=== PATIENT | female | born 1975 ===

== ENCOUNTER 2017-01-11 21:50 | Inpatient (IN) | payer MEDICAID, OTHER ==
[2017-01-11 22:29] LABS: RBC URINE 4 /hpf (0-3); URINE BACTERIA OCC (<OCC); URINE BILIRUBIN NEGATIVE (NEGATIVE); URINE BLOOD 1+ (NEGATIVE); URINE COLOR Yellow (YELLOW); URINE GLUCOSE (UA) NORMAL (Normal); URINE KETONE NEGATIVE (NEGATIVE); URINE PROTEIN 3+ mg/dL (NEGATIVE); URINE UROBILINOGEN NORMAL mg/dL (0.2-1.0); WBC URINE 7 /hpf (0-5)
[2017-01-11 22:31] LABS: URINE LEUKOCYTE ESTERASE 1+ Leu/uL (Negative)
--- NOTE | 2017-01-11 22:43 | C.PDOC ---
History Of Present Illness 41 year old female, currently with EDC on February 22, presents to the ED with complaints of SOB for 2 days. Denies headache, chest pain, nausea, vomiting , dizziness, or any other complaints at this time. Chief Complaint (Nursing): Shortness Of Breath History Per: Patient History/Exam Limitations: no limitations Onset/Duration Of Symptoms: Days Current Symptoms Are (Timing): Still Present Severity: Mild Past Medical History Reviewed: Historical Data, Nursing Documentation, Vital Signs Vital Signs: Last Vital Signs Temp 98 F 01/12/17 00:12 Pulse 112 H 01/12/17 00:12 Resp 22 01/12/17 00:12 BP 155/86 H 01/12/17 00:12 Pulse Ox 99 01/12/17 00:54 - Medical History PMH: No Chronic Diseases Family History: States: Unknown Family Hx - Social History Hx Alcohol Use: No Hx Substance Use: No - Immunization History Hx Tetanus Toxoid Vaccination: No Hx Influenza Vaccination: No Hx Pneumococcal Vaccination: No Review Of Systems Except As Marked, All Systems Reviewed And Found Negative. Constitutional: Negative for: Fever, Chills Cardiovascular: Negative for: Chest Pain Respiratory: Positive for: Shortness of Breath Gastrointestinal: Negative for: Nausea, Vomiting, Abdominal Pain Neurological: Negative for: Headache, Dizziness Physical Exam - Physical Exam Appears: Non-toxic, No Acute Distress Skin: Normal Color, Warm, Dry Head: Atraumatic, Normacephalic Eye(s): bilateral: Normal Inspection Oral Mucosa: Moist Chest: Symmetrical, No Deformity Cardiovascular: Rhythm Regular Respiratory: Normal Breath Sounds, No Accessory Muscle Use, No Rales, No Rhonchi , No Wheezing Gastrointestinal/Abdominal: No Tenderness, Other (+Gravid) Extremity: Normal ROM, Pedal Edema (3+ pedal edema), No Deformity Neurological/Psych: Oriented x3, Normal Speech, Normal Cognition ED Course And Treatment - Laboratory Results Result Diagrams: 01/11/17 22:46 01/11/17 22:46 ECG: Interpreted By Me, Viewed By Me ECG Rhythm: Nonspecific Changes ECG Interpretation: No Acute Changes Interpretation Of ECG: Sinus tachycardia, non-spc. ST-T changes, abnormal tracings Rate From EC O2 Sat by Pulse Oximetry: 99 (Room air) Pulse Ox Interpretation: Normal Progress Note: CXR, EKG, Blood work, and Urinalysis ordered and reviewed. Patient treated with Apresoline and Magnesium sulfate. Case discussed with Dr. Perez (CHIEF WHEELAGE CLERK on-call) who agreed to see the patient at bedside. heart rate is 150 bpm. Disposition Discussed With : Martha Perez Doctor Will See Patient In The: Hospital Counseled Patient/Family Regarding: Diagnosis - Disposition Disposition: HOSPITALIZED Disposition Time: 23:34 Condition: STABLE - POA Present On Arrival: None - Clinical Impression Clinical Impression: Eclampsia (toxemia of ) - Scribe Statement The provider has reviewed the documentation as recorded by the Scribe Basia Penn. Provider Attestation: All medical record entries made by the Scribe were at my direction and personally dictated by me. I have reviewed the chart and agree that the record accurately reflects my personal performance of the history, physical exam, medical decision making, and the department course for this patient. I have also personally directed, reviewed, and agree with the discharge instructions and disposition.
[2017-01-11 22:54] LABS: BASO % 0.4 % (0.0-2.0); EOS % 0.2 % (0.0-4.0); HEMATOCRIT 37.1 % (34.0-47.0); LYMPH # 1.8 K/uL (1.0-4.3); LYMPH % 18.5 % (20.0-40.0); MEAN CELL VOLUME 88.2 fL (81.0-99.0); MEAN CORPUSCULAR HEMOGLOBIN 28.7 pg (27.0-31.0); MEAN CORPUSCULAR HGB CONC 32.5 g/dL (33.0-37.0); MEAN PLATELET VOLUME 9.3 fL (7.2-11.7); MONO # 0.5 K/uL (0.0-0.8); MONO % 4.8 % (0.0-10.0); RED CELL DISTRIBUTION WIDTH 14.7 % (11.5-14.5); WHITE BLOOD COUNT 9.8 K/uL (4.8-10.8)
[2017-01-11 22:58] LABS: CHLORIDE 103 mmol/L (98-107); SODIUM 133 mmol/L (132-148)
[2017-01-11 22:59] LABS: POTASSIUM 3.6 mmol/L (3.6-5.2)
[2017-01-11 23:01] LABS: ALB/GLOB RATIO 0.8 (1.0-2.1); ALKALINE PHOSPHATASE 204 U/L (38-126); ALT/SGPT 71 U/L (9-52); AST/SGOT 100 U/L (14-36); BILIRUBIN,TOTAL 0.5 mg/dL (0.2-1.3); BLOOD UREA NITROGEN 15 mg/dL (7-17); CARBON DIOXIDE 20 mmol/L (22-30); GFR AFRICAN-AMERICAN > 60; GLUCOSE,RANDOM 92 mg/dL (65-105); TOTAL PROTEIN 7.1 g/dL (6.3-8.3)
[2017-01-11 23:02] LABS: CALCIUM 8.2 mg/dl (8.6-10.4)
[2017-01-11] MEDS ORDERED: Magnesium Sulfate 2 GM in Sodium Chloride 0.9% 100 ML IV ONE (23:24)
[2017-01-11] MEDS ORDERED: Betamethasone Soluspan 30 mg/5mL Inj Susp IM ONE (23:27)
[2017-01-12] MEDS ORDERED: Magnesium Sulfate 20 gm 500 ML IV ONE ×3 (00:35→15:15)
[2017-01-12] MEDS ORDERED: Magnesium Sulfate 20 gm 500 ML IV SCH ×2 (00:45→05:45)
[2017-01-12] MEDS ORDERED: Lactated Ringer's 1,000 ML IV SCH (01:00)
[2017-01-12 02:02] LABS: RBC URINE 1 /hpf (0-3); URINE BILIRUBIN NEGATIVE (NEGATIVE); URINE BLOOD 1+ (NEGATIVE); URINE COLOR Yellow (YELLOW); URINE GLUCOSE (UA) NORMAL (Normal); URINE KETONE NEGATIVE (NEGATIVE); URINE LEUKOCYTE ESTERASE NEG Leu/uL (Negative); URINE PROTEIN 2+ mg/dL (NEGATIVE); URINE UROBILINOGEN NORMAL mg/dL (0.2-1.0); WBC URINE 1 /hpf (0-5)
--- NOTE | 2017-01-12 02:28 | CP.PCM.CON ---
<Annita Marks - Last Filed: 01/12/17 02:12> History of Present Illness - History of Present Illness History of Present Illness: Consult Note - Medicine CC: "shortness of breath" HPI: Patient is a 41 year old female, currently 34 weeks , with no previous medical history who presented to the emergency room complaining of shortness of breath x 2 days. Patient states her shortness of breath began suddenly on Thursday night and has become increasingly worse, prompting her to come to the hospital. She reports shortness of breath is worse with activity and describes it as "suffocating." Patient admits to chest pain, however, points to her epigastric region and notes it to be worse on palpation and with movement. She states the epigastric pain began 1 week ago. Patient reports this is her first episode of dyspnea. She states her previous pregnancies were vaginal deliveries with no complications and denies a history of abortions or miscarriages. She last saw her OBGYN 2 weeks ago. Patient denies being diagnosed with hypertension currently or in a previous . On 12-point review of system, she admits to prior history of irregular menses, blurry vision x 1 week and seeing bright lights x1 day, nausea, vomiting x1 , diarrhea , increased urinary frequency, and increased general weakness. Patient denies headache and vaginal bleeding. In emergency department, patient was found to be hypertensive, initial blood pressure of 178/102. Patient was given IV Hydralazine 20 mg stat which improved pressure to 132/72. Patient also noted to be sinus tachycardic at rate of 112 on EKG. PMH: irregular menses Medications: vitamins Allergies: NKDA Family History: not pertinent Surgical History: denies Social: never smoker. Denies alcohol and illicit drug use. Review of Systems - Constitutional Constitutional: Weakness. absent: Chills, Excessive Sweating, Fever, Headache - EENT Eyes: Blurred Vision, Change in Vision - Cardiovascular Cardiovascular: Chest Pain, Chest Pain with Activity, Dyspnea, Palpitations. absent: Leg Edema, Syncope - Respiratory Respiratory: Dyspnea on Exertion. absent: Cough - Gastrointestinal Gastrointestinal: Abdominal Pain, Diarrhea, Nausea, Vomiting. absent: Coffee Ground Emesis, Hematemesis - Genitourinary Genitourinary: Urinary Frequency - Reproductive: Female Additional comments: 34 weeks - Menstruation Menstruation: Cycle > 4 Weeks Between - Musculoskeletal Musculoskeletal: Back Pain - Integumentary Integumentary: absent: Changing Lesions, New Lesions - Neurological Neurological: Weakness. absent: Dizziness, Headaches - Psychiatric Psychiatric: absent: Anxiety, Depression Past Patient History - Past Social History Smoking Status: Never Smoked - PSYCHIATRIC Hx Substance Use: No - SURGICAL HISTORY Hx Surgeries: No Meds Allergies/Adverse Reactions: Allergies Allergy/AdvReac Type Severity Reaction Status Date / Time No Known Allergies Allergy Verified 01/11/17 22:05 - Medications Medications: Current Medications Hydralazine HCl (Apresoline) 10 mg IVP STAT [facility] Last Admin: 01/11/17 23:26 Dose: 10 mg Lactated Ringer's (Lactated Ringer's) 1,000 mls @ 75 mls/hr IV .[id number] [facility] Physical Exam - Constitutional Appears: Non-toxic, No Acute Distress - Head Exam Head Exam: ATRAUMATIC, NORMAL INSPECTION, NORMOCEPHALIC - Eye Exam Eye Exam: EOMI, Normal appearance, PERRL Pupil Exam: PERRL - ENT Exam ENT Exam: Mucous Membranes Moist, Normal Exam - Neck Exam Neck exam: Positive for: Full Rom, Normal Inspection - Respiratory Exam Respiratory Exam: Clear to Auscultation Bilateral, NORMAL BREATHING PATTERN. absent: Accessory Muscle Use, Chest Wall Tenderness, Decreased Breath Sounds, Rales, Rhonchi, Wheezes - Cardiovascular Exam Cardiovascular Exam: Tachycardia, +S1, +S2. absent: Diastolic murmur, Systolic Murmur - GI/Abdominal Exam GI & Abdominal Exam: Normal Bowel Sounds, Tenderness. absent: Guarding Additional comments: epigastric tenderness to palpation Gravid - Exam Speculum exam: absent: Vaginal Bleeding Additional comments: vaginal exam: cervix closed, posterior, cephalic - Extremities Exam Extremities exam: Positive for: normal inspection, pedal pulses present. Negative for: pedal edema, tenderness - Back Exam Back exam: NORMAL INSPECTION - Neurological Exam Neurological exam: Alert, CN II-XII Intact, Oriented x3, Reflexes Normal - Psychiatric Exam Psychiatric exam: Normal Affect, Normal Mood - Skin Skin Exam: Intact, Normal Color Results - Vital Signs Recent Vital Signs: Last Vital Signs Temp 98 F 01/12/17 00:12 Pulse 112 H 01/12/17 00:12 Resp 22 01/12/17 00:12 BP 155/86 H 01/12/17 00:12 Pulse Ox 99 01/12/17 01:00 - Labs Result Diagrams: 01/11/17 22:46 01/11/17 22:46 Labs: Laboratory Results - last 24 hr 01/11/17 01/12/17 23:50 01:43 Urine Color Yellow Urine Clarity Hazy Urine pH 6.0 Ur Specific [facility] 1.009 Urine Protein 2+ H Urine Glucose (UA) Normal Urine Ketones Negative Urine Blood 1+ H Urine Nitrate Negative Urine Bilirubin Negative Urine Urobilinogen Normal Ur Leukocyte Esterase Neg Urine WBC (Auto) 1 Urine RBC (Auto) 1 Ur Squamous Epith Cells 1 Blood Type O POSITIVE Antibody Screen Negative Assessment & Plan - Assessment and Plan (Free Text) Assessment: 1. Possible HELLP or Partial HELLP Syndrome Platelets 115,000 AST 100 ALT 71 f/u LDH to assess for hemolysis f/u PT, PTT, fibrinogen According to [place] classification: mild (class 3) - platelet count of 100, 000-150,000/uL, AST and ALT greater than 40IU/L and LDH > 600 IU/L According to [place] classification: severe preeclampsia with elevated liver enzymes (AST or ALT levels of 70 IU/L or more) Recommend delivery in light of possible HELLP or partial HELLP syndrome 2. Preeclampsia with severe features Initial blood pressure of 178/102 UA: urine protein 3+ admits to new onset blurry vision and scintillating and epigastric pain AST 100, ALT 71 f/u uric acid Hydralazine IVP for blood pressure control Recommend delivery 3. Possible Pulmonary Embolism EKG: sinus tachycardia with rate 112 c/o of shortness of breath d-dimer 1194 Well's score of 4.5 - moderate risk group with 16.2% chance of PE Recommend CT angio post delivery; if positive, recommend anticoagulation Thank you for the consult. Will continue to follow patient. Annita Marks PGY1 - Date & Time Date: 01/12/17 Time: 03:06 <Blake Aguilar - Last Filed: 01/12/17 06:40> Meds - Medications Medications: Current Medications Enoxaparin Sodium (Lovenox) 30 mg SC DAILY [facility] Hydralazine HCl (Apresoline) 10 mg IVP STAT [facility] Last Admin: 01/11/17 23:26 Dose: 10 mg Lactated Ringer's (Lactated Ringer's) 1,000 mls @ 75 mls/hr IV .[id number] JOSE Last Admin: 01/12/17 01:00 Dose: 75 mls/hr Cefoxitin Sodium 2 gm/ Sodium (Chloride) 150 mls @ 50 mls/hr IV Q8H JOSE Last Admin: 01/12/17 03:20 Dose: 50 mls/hr Magnesium Sulfate (Magnesium Sulfate) 500 mls @ IV .Q0M JOSE; 2 GM/HR PRN Reason: Protocol Oxytocin (Pitocin 20 Units In Lr) 1,000 mls @ 125 mls/hr IV .Q8H JOSE PRN Reason: Protocol Famotidine 20 mg/ Sodium (Chloride) 52 mls @ 100 mls/hr IVPB STAT STA Stop: 01/12/17 06:40 Results - Vital Signs Recent Vital Signs: Last Vital Signs Temp 98 F 01/12/17 00:12 Pulse 112 H 01/12/17 00:12 Resp 22 01/12/17 00:12 BP 155/86 H 01/12/17 00:12 Pulse Ox 99 01/12/17 01:00 - Labs Result Diagrams: 01/11/17 22:46 01/11/17 22:46 Labs: Laboratory Results - last 24 hr 01/11/17 01/12/17 01/12/17 23:50 01:43 03:21 PT 9.3 L INR 0.8 APTT 30 Fibrinogen 437 H Puncture Site Rrad pCO2 23 L pO2 100 HCO3 20.0 L ABG pH 7.45 ABG Total CO2 16.7 L ABG O2 Saturation 97.9 ABG Base Excess -6.3 L ABG Hemoglobin 12.2 ABG Carboxyhemoglobin 1.6 H POC ABG HHb (Measured) 2.0 ABG Methemoglobin 0.9 Hong Test Pos Hgb O2 Saturation 95.5 Urine Color Yellow Urine Clarity Hazy Urine pH 6.0 Ur Specific [facility] 1.009 Urine Protein 2+ H Urine Glucose (UA) Normal Urine Ketones Negative Urine Blood 1+ H Urine Nitrate Negative Urine Bilirubin Negative Urine Urobilinogen Normal Ur Leukocyte Esterase Neg Urine WBC (Auto) 1 Urine RBC (Auto) 1 Ur Squamous Epith Cells 1 Blood Type O POSITIVE Antibody Screen Negative Assessment & Plan - Date & Time Date: 01/12/17 (I have seen and examined the patient. I agree with the findings and plan of care as documented by Dr. Marks. Patient with preeclampsia, with risk of HELLP syndrome. Likely for C Section. Also with tachycardia and SOB. High risk of pulmonary embolism. Recommend CT angio immediately after C section if done tonight, and then treatment if necessary. If C section not to be done emergently, may Spiral CT may be done. Monitor hemodynamic status and breathing. ) Time: 06:36 Attending/Attestation - Attestation I have personally seen and examined this patient.: Yes I have fully participated in the care of the patient.: Yes I have reviewed all pertinent clinical information: Yes
[2017-01-12] MEDS ORDERED: Iodixanol 320 MG/ML 100 ML BOTTLE IV ONE (02:42)
[2017-01-12] MEDS ORDERED: Sodium Citrate/Citric Acid 15 ml Sol PO ONE (02:46)
[2017-01-12 02:55] LABS: INR 0.8
[2017-01-12] MEDS ORDERED: cefOXitin IV 2 gm in Dextrose 50 ML IVPB ONE ×2 (03:16→20:30)
[2017-01-12] MEDS ORDERED: Oxytocin 20 units in LR 2,000 ML IV ONE (03:20)
[2017-01-12] MEDS: cefOXitin IV 2 gm in Saline 2 GM in Sodium Chloride 0.9% 100 ML IV SCH ×2 (03:20→12:32)
[2017-01-12] MEDS ORDERED: Oxytocin 10 Units/ml Inj ONE (03:21)
[2017-01-12 03:37] LABS: ABG ALLEN TEST POS; ARTERIAL BLOOD HGB O2 SAT 95.5 % (95.0-98.0); CARBOXYHEMOGLOBIN 1.6 % (0.5-1.5); DRAW SITE RRAD; METHEMOGLOBIN 0.9 % (0.0-3.0)
[2017-01-12 03:37] LABS: URIC ACID 6.8 mg/dL (2.2-7.5)
--- NOTE | 2017-01-12 03:41 | CT ---
EXAM: CT Angiography Chest With Intravenous Contrast. CLINICAL HISTORY: 41 years old, female; Signs and symptoms; Shortness of breath; Additional info: Chest pain, SOB /. Patient 34 weeks TECHNIQUE: Axial computed tomographic angiography images of the chest with intravenous contrast using pulmonary embolism protocol. This CT exam was performed using one or more of the following dose reduction techniques: automated exposure control, adjustment of the mA and/or kV according to patient size, and/or use of iterative reconstruction technique. MIP reconstructed images were created and reviewed. Coronal and sagittal reformatted images were created and reviewed. CONTRAST: 60 mL of [id number] administered intravenously. COMPARISON: No relevant prior studies available. FINDINGS: Limitations: Streak artifact - mild. Motion artifact - mild. Suboptimal timing of bolus. Pulmonary arteries: No definite filling defects within main, lobar, segmental branches. Suboptimal evaluation of subsegmental branches. Aorta: No aneurysm. No dissection. Lungs: Minimal interlobular septal thickening. Mosaic attenuation/groundglass opacities of lower lobes. Pleural space: Trace to small bilateral pleural effusions. No pneumothorax. Heart: Borderline cardiomegaly. No significant pericardial effusion. Bones/joints: No acute fracture. No dislocation. Soft tissues: Minimal stranding within subcutaneous tissues. Lymph nodes: No pathologically enlarged lymph nodes. IMPRESSION: 1. No definite pulmonary embolism. 2. Probable early interstitial edema. Clinical correlation is needed. 3. Incidental/non-acute findings are described above.
[2017-01-12] MEDS ORDERED: Morphine 1 mg/ml preservative-free Inj(Duramorph) ONE (03:55)
--- NOTE | 2017-01-12 03:56 | OBADHP ---
Datetime: 01/12/2017 01:22 IP Chief Complaint Other: SOB, chest pain IP Adm Impression Other: Severe pre-eclampsia/HELLP syndrome; advanced maternal age Admit Comment, IP Provider: [employer] ID [id number] for H_P and admission; then [place] [id number] for CT scan and operative 41 yo , LMP unsure, MIRIAM 02/22/17, EGA 34 weeks confirmed by sono 09/09/16 at 16w 2d, presented to E.D. 01/11/17 c/o chest pain and shortness of breath since 01/09/17, worse Sat into Thursday. Pain wo rse with rapid ambulation; feels like "I'm suffocating". (+) AFM; denies LOF, VB, occ Ctx. Denies hea daches; (+) blurred vision, spots, epigastric and RUQ pain - also since Thursday. care: [facility]; last visit 2 weeks ago 12/29/16. 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 Denies STIs PMH: denies HTN, asthma, DM PSH: denies NKDA Meds: vitamins Soc Hx: denies tobacco, illicit drug or EtOH use. With FOB x 18 years. Unemployed Fam Hx: Mother alive 66 - DM. Father due to alcoholism P.E.: as above. Patient received in E.D. bed #11. Obese, in apparent discomfort; mildy diaphoretic . Awake, alert, oriented to time, person and place. Pleasant, cooperative. First BP 178/102; S/P hydr alazine with decrease to 150s/80s; transferred to L_D with a BP of 146/86; patient maintained o2 satu ration at 100 % throughout encounter in E.D. At time of transfer, reported feeling better - chest dax n stilll present, yet improved. Loading dose of 4 grams magnesium sulphate completed; maintenance of 2 grams per hour was started. Patient received celestone 12 mg IM in E.D. Assessment: 41 yo P3, 34 weeks, severe pre-eclampsia/HELLP syndrome - on magnesium sulphate; S/P c elestone. Maternal tachycardia persists - R/O pulmonary embolus. Medicine consult obtained - input a ppreciated. Also consulted with M, Dr. Сергей Ryan, who agres with delivery of patient at this t emily. To this end, patient consented for: 1) spiral CT angiogram, including the minimal risk to fetus of radiation exposure; 2) primary section, R/B/C reviewed; 3) blood transfusion. Patient's q uestions were answered; consents signed, witnessed, dated and placed in chart. patient last oatmeal 1 800 hours 01/11/17. Patient in guarded condition plan: 1) Admit 2) NPO 3) Continuous EFM 4) continue magnesium sulphate 5) Cuevas - strict Is/Os 6) Abdomnal prep and shave 7) Mefoxin, mortgage professional to O.R. 8) Notify anesthesia 9) Notify peds 10) director call center sales to O.R. 11) Admission labs, and 12 ) Serial pre-eclamptic labs with magnesium level q 6 hours Pelvic Type - PN: Adequate Extremities - PN: Normal Abdomen - PN: Normal Back - PN: Normal Breast - PN: Not Done Lungs - PN: Abnormal Heart - PN: Abnormal Thyroid - PN: Not Done Neurologic - PN: Normal HEENT - PN: Abnormal General - PN: Normal Presentation-Admit: Vertex FHR - Baseline A Provider: 145 Membranes, Provider: Intact Contraction Comments Provider: 3-4 Comments, ACOG Physical Exam: Skin: warm, diaphoretic HEENT: full ROM Lungs: decreased breath sound, mid field right side; otherwise, clear to auscultation Cardiac: tachycardic, normal S1, S2 Abdomen: Obese. Gravid. (+) epigastric tenderness; no RUQ tenderness /perineum: no masses or discharge Extremities: 1+ lower extremity edema bilaterally, no calf tenderness bilaterally Limited ultrasound performed: cepahlic, (+) AFM, (+) FBM; (+) FM; GUME 16.99; anterior placenta. All other systems reviewed - see HPI Gestation - Est Wks by US: 34.0 Vital Signs Provider: Reviewed NICHD Variability Prov Fetus A: Moderate 6-25bpm NICHD Accel Fetus A IP Provider: 10X10 FHR Category Provider Fetus A: Category I NICHD Decel Fetus A IP Provider: None Dilatation, Provider: 0 Effacement, Provider: 0 Station, Provider: -3 Genitourinary Exam: Normal DTRs - PN: Abnormal IP Adm Impression: , intrauterine ; No Active Labor IP Admit Plan: Admit to unit; Initiate Section protocol
--- NOTE | 2017-01-12 05:45 | PCM.SURG1 ---
Surgeon's Initial Post Op Note - Surgeon's Notes Surgeon: Martha Perez MD Asset Liability Analyst: Toby Delgado MD Type of Anesthesia: Spinal Anesthesia Administered By: Dr. Marc Pre-Operative Diagnosis: 34 weeks gestation, severe pre-eclampsia/ HELLP syndrome; advanced maternal age Operative Findings: Live female , LOT position, Apgars 9/9. weight 4lb 9 oz. Cord pH 7.27. Normal uterus; normal fallopian tubes and ovaries bilaterally Post-Operative Diagnosis: Same Operation Performed: Primary transverse lower uterine segment section Specimen/Specimens Removed: Placenta Estimated Blood Loss: EBL {In ML}: 800 (U.O. 200 cc, clear. IVFs 1200 cc LR) Blood Products Given: N/A Drains Used: No Drains Post-Op Condition: Good Date of Surgery/Procedure: 01/12/17 Time of Surgery/Procedure: 05:10
[2017-01-12] MEDS ORDERED: Magnesium Sulfate 20 gm 500 ML IV PRN (07:12)
[2017-01-12 07:35] LABS: BASO % 0.1 % (0.0-2.0); HEMATOCRIT 35.7 % (34.0-47.0); LYMPH # 1.1 K/uL (1.0-4.3); LYMPH % 10.1 % (20.0-40.0); MEAN CELL VOLUME 88.7 fL (81.0-99.0); MEAN CORPUSCULAR HEMOGLOBIN 29.4 pg (27.0-31.0); MEAN CORPUSCULAR HGB CONC 33.2 g/dL (33.0-37.0); MEAN PLATELET VOLUME 9.8 fL (7.2-11.7); MONO # 0.1 K/uL (0.0-0.8); MONO % 1.3 % (0.0-10.0); RED CELL DISTRIBUTION WIDTH 14.2 % (11.5-14.5); WHITE BLOOD COUNT 10.5 K/uL (4.8-10.8)
[2017-01-12 07:42] LABS: CHLORIDE 103 mmol/L (98-107); POTASSIUM 3.8 mmol/L (3.6-5.2); SODIUM 134 mmol/L (132-148)
[2017-01-12 07:44] LABS: ALB/GLOB RATIO 0.8 (1.0-2.1); ALKALINE PHOSPHATASE 181 U/L (38-126); ALT/SGPT 57 U/L (9-52); AST/SGOT 91 U/L (14-36); BILIRUBIN,TOTAL 0.3 mg/dL (0.2-1.3); BLOOD UREA NITROGEN 14 mg/dL (7-17); CARBON DIOXIDE 19 mmol/L (22-30); GFR AFRICAN-AMERICAN > 60; GLUCOSE,RANDOM 123 mg/dL (65-105); TOTAL PROTEIN 5.7 g/dL (6.3-8.3)
[2017-01-12 07:45] LABS: CALCIUM 7.3 mg/dl (8.6-10.4); MAGNESIUM 3.8 mg/dL (1.6-2.3); URIC ACID 6.2 mg/dL (2.2-7.5)
[2017-01-12] MEDS ORDERED: Bupivacaine-Epi 0.5%-1:200,000 PF Inj ONE (07:51)
[2017-01-12 08:15] LABS: RBC URINE 55 /hpf (0-3); URINE BILIRUBIN NEGATIVE (NEGATIVE); URINE BLOOD 2+ (NEGATIVE); URINE COLOR Yellow (YELLOW); URINE GLUCOSE (UA) 1+ mg/dL (Normal); URINE KETONE TRACE mg/dL (NEGATIVE); URINE LEUKOCYTE ESTERASE NEG Leu/uL (Negative); URINE PROTEIN 2+ mg/dL (NEGATIVE); URINE UROBILINOGEN NORMAL mg/dL (0.2-1.0); WBC URINE 15 /hpf (0-5)
--- NOTE | 2017-01-12 10:20 | RAD ---
HISTORY: sob COMPARISON: No prior. FINDINGS: LUNGS: Poor inspiration with low lung volumes, mild crowded bronchovascular markings and mild bibasilar atelectasis. The central pulmonary vasculature appears slightly increased of this is likely due to poor inspiration patient positioning and body habitus. PLEURA: No significant pleural effusion identified, no pneumothorax apparent. CARDIOVASCULAR: Normal. OSSEOUS STRUCTURES: No significant abnormalities. VISUALIZED UPPER ABDOMEN: Normal. OTHER FINDINGS: None. IMPRESSION: Poor inspiration with low lung volumes, mild crowded bronchovascular markings and mild bibasilar atelectasis. The central pulmonary vasculature appears slightly increased of this is likely due to poor inspiration patient positioning and body habitus.
--- NOTE | 2017-01-12 10:40 | OP ---
PROCEDURE DATE: 01/12/2017 SURGEON: Martha Perez MD. SENIOR TRAINING AND DEVELOPMENT REP: Toby Delgado MD. SENIOR TRAINING AND DEVELOPMENT REP: Dr. Marc. ANESTHESIA TYPE: Spinal. PREOPERATIVE DIAGNOSES: 34-week gestation, advanced maternal age, severe preeclampsia, HELLP (hemolysis, elevated liver enzymes, low platelet count) syndrome, rule out pulmonary embolus. POSTOPERATIVE DIAGNOSES: A 34-week gestation, advanced maternal age, severe preeclampsia, HELLP (hemolysis, elevated liver enzymes, low platelet count) syndrome, rule out pulmonary embolus. FINDINGS: Live female infant from the left occipital transverse position, Apgars 9 and 9 at one and five minutes, respectively, weight 4 pounds 9 ounces. Cord pH was 7.27; base excess of -9.6. Normal uterus; normal ovaries and fallopian tubes, bilaterally. PROCEDURE PERFORMED: Primary transverse lower uterine segment Caesarean section. COMPLICATIONS: None. ESTIMATED BLOOD LOSS: 800 mL. INTRAVENOUS FLUIDS: 1200 mL lactated ringers. URINARY OUTPUT: 200 mL of clear urine. SPECIMEN: Placenta. PROCEDURE: The patient was taken to the operating room after having obtained informed consent for the anticipated procedure. This included a discussion of possible risks and complications, including but not limited to infection requiring antibiotics, hemorrhage requiring blood transfusion, repair of any damage to internal organs, possible Caesarean hysterectomy. The patient expressed an understanding, and all her questions were answered. Consents were signed, dated, witnessed, and placed in the chart. The patient was then transferred to the operating room. In the operating room, she was placed on the operating room table in a supine position where spinal anesthesia was administered without incident. She was immediately positioned into the supine position; heart rate was auscultated at 164 beats per minute. The patient's abdomen was prepped, and she was draped in usual sterile fashion. Using a scalpel, a Pfannenstiel incision was made on the skin. Incision was carried down through the subcutaneous tissue using the Bovie electrocautery. The fascia was identified; it was nicked in the midline, and the incision was extended bilaterally using the Bovie electrocautery. The rectus muscle was dissected off the overlying fascia. The rectus muscle was subsequently in the midline. The peritoneum was tented up using 2 Sia clamps, and using the Metzenbaum scissors , the abdominal cavity was entered without incident. The vesicouterine reflection was identified, and the bladder flap was created. A transverse incision was then made on the lower uterine segment. Amniotomy was performed, and a copious amount of clear fluid was retrieved. Atraumatic delivery of the infant with findings as above then ensued. Once on the operative field, the 's mouth and nose were bulb-suctioned, and the umbilical cord was doubly clamped and cut. The was handed off the operative field to the online marketing analyst in attendance. A segment of the umbilical cord was also obtained for cord pH analysis - results as above. The placenta was delivered manually; it was grossly intact with 3 vessels present in the cord. The uterus was exteriorized for closure, and this was done in 2 layers using O-vicryl: the first layer was in a running interlocking fashion. The second layer was a vertical imbricating fashion. Additional stitches of 0 Vicryl were placed with [id number] to assure hemostasis. Examination of the pelvic viscera was with the findings as above. Copious irrigation was then performed of the abdominal cavity. The bladder flap was reapproximated using 2-0 chromic in a running fashion. The uterus was returned to the abdominal cavity, and the paracolic gutters were cleared of all debris. The parietoperitoneum was reapproximated in midline using 2-0 chromic in a running fashion, and the muscle was reapproximated using 3-0 chromic in a running fashion. Hemostasis was assured on the right side of the rectus muscle with a [id number] stitch using 2-0 chromic, and Surgicel was placed along the rectus muscle. The fascia was then reapproximated using 1-0 Vicryl in a running fashion with a single suture length. The subcutaneous tissue was reapproximated using plain catgut in a running fashion, and the skin was reapproximated using surgical clips. A pressure dressing was applied. Bimanual examination was performed, and the uterus was expressed of a minimal amount of bleeding and minimal amount of clots; it was contracted and firm, at the umbilicus. The patient was transferred to [facility] in stable condition. The infant was transferred to the [facility] initially in stable condition; subsequently the decision was made to transfer the baby to [facility] for further management. Dr. Toby Delgado was present throughout the entire procedure from beginning to end. His presence was necessary for: 1) adequate visualization of the operative field 2) applying appropriate and adequate fundal pressure for the safe and atraumatic delivery of the infant 3) assuring hemostasis throughout Martha A Chris CONCEPCION cc: [id number] TT: 01/12/2017 10:39:51 jn DELGADO
[2017-01-12 11:51] LABS: HEP B SURFACE AG CONF NOT CONFIRMED NEG
[2017-01-12] MEDS ORDERED: SALINE IVPB SCH (12:30)
[2017-01-12] MEDS ORDERED: cefOXitin IV 2 gm in Dextrose 50 ML IVPB SCH (12:30)
[2017-01-12] MEDS ORDERED: CEFOXITIN IVPB SCH (12:30)
--- NOTE | 2017-01-12 13:56 | CP.PCM.PN ---
<MannieKecia - Last Filed: 01/12/17 13:53> Subjective - Date & Time of Evaluation Date of Evaluation: 01/12/17 Time of Evaluation: 07:30 - Subjective Subjective: PGY [address] Cano: Patient seen and examined at bedside this morning. Patient was s/p C section. The baby was transferred to [facility]. She was awake and alert.She complained of some nausea but otherwise stated she was feeling better. She stated that he SOB was improving. She denied headache or changes in vision. She denied chest pain or other new complaints as well. Objective - Vital Signs/Intake and Output Vital Signs (last 24 hours): Temp Pulse Resp BP Pulse Ox 98 F 112 H 22 155/86 H 99 01/12/17 00:12 01/12/17 00:12 01/12/17 00:12 01/12/17 00:12 01/12/17 01:00 - Medications Medications: Current Medications Enoxaparin Sodium (Lovenox) 30 mg SC DAILY [facility] Hydralazine HCl (Apresoline) 10 mg IVP STAT [facility] Last Admin: 01/11/17 23:26 Dose: 10 mg Hydralazine HCl (Apresoline) 25 mg PO QID PRN PRN Reason: elevated blood pressure Lactated Ringer's (Lactated Ringer's) 1,000 mls @ 75 mls/hr IV .[id number] [facility] Last Admin: 01/12/17 01:00 Dose: 75 mls/hr Oxytocin (Pitocin 20 Units In Lr) 1,000 mls @ 125 mls/hr IV .Q8H [facility] PRN Reason: Protocol Magnesium Sulfate (Magnesium Sulfate) 500 mls @ 0 mls/hr IV .Q0M PRN PRN Reason: UD Cefoxitin Sodium (Mefoxin Iv 2 Gm) 50 mls @ 50 mls/hr IVPB Q8H [facility] - Labs Labs: 01/12/17 07:29 01/12/17 07:29 PT 9.3 SECONDS (9.7-12.2) L 01/12/17 01:43 INR 0.8 01/12/17 01:43 APTT 30 SECONDS (21-34) 01/12/17 01:43 - Constitutional Appears: Non-toxic, No Acute Distress - Head Exam Head Exam: ATRAUMATIC, NORMAL INSPECTION - Eye Exam Eye Exam: EOMI, Normal appearance, PERRL Pupil Exam: NORMAL ACCOMODATION - ENT Exam ENT Exam: Mucous Membranes Moist - Respiratory Exam Respiratory Exam: Clear to Ausculation Bilateral, NORMAL BREATHING PATTERN. absent: Respiratory Distress - Cardiovascular Exam Cardiovascular Exam: Tachycardia, REGULAR RHYTHM, +S1, +S2 - GI/Abdominal Exam GI & Abdominal Exam: Soft, Tenderness, Normal Bowel Sounds. absent: Distended, Firm, Guarding Additional comments: s/p C section - Back Exam Back Exam: NORMAL INSPECTION. absent: CVA tenderness (L), CVA tenderness (R), paraspinal tenderness - Neurological Exam Neurological Exam: Alert, Awake, CN II-XII Intact, Oriented x3 - Psychiatric Exam Psychiatric exam: Normal Affect, Normal Mood - Skin Skin Exam: Dry, Normal Color, Warm Assessment and Plan - Assessment and Plan (Free Text) Assessment: 1. Possible HELLP or Partial HELLP Syndrome s/p C section this morning Platelets 115,000, down to 105,oo this AM AST 91 ALT 57 LDH elevated PT, PT - wnl fibrinogen 437 According to [place] classification: mild (class 3) - platelet count of 100, 000-150,000/uL, AST and ALT greater than 40IU/L and LDH > 600 IU/L According to [place] classification: severe preeclampsia with elevated liver enzymes (AST or ALT levels of 70 IU/L or more) f/u AM labs 2. Preeclampsia with severe features Initial blood pressure of 178/102, whenx examined BP controoled to 135/93 Hydralazine 25mg PO prn SBP >160 s/p C section On Mg drip 3. Possible Pulmonary Embolism CT Angio - negative for PE EKG: sinus tachycardia with rate 112 c/o of shortness of breath - imroving d-dimer 1194 Well's score of 4.5 - moderate risk group with 16.2% chance of PE Thank you for the consult. Will continue to follow patient. <Gómez Cano H - Last Filed: 01/12/17 18:17> Objective - Vital Signs/Intake and Output Vital Signs (last 24 hours): Temp Pulse Resp BP Pulse Ox 98 F 112 H 22 155/86 H 99 01/12/17 00:12 01/12/17 00:12 01/12/17 00:12 01/12/17 00:12 01/12/17 01:00 - Medications Medications: Current Medications Enoxaparin Sodium (Lovenox) 30 mg SC DAILY [facility] Hydralazine HCl (Apresoline) 10 mg IVP STAT [facility] Last Admin: 01/11/17 23:26 Dose: 10 mg Hydralazine HCl (Apresoline) 25 mg PO QID PRN PRN Reason: elevated blood pressure Lactated Ringer's (Lactated Ringer's) 1,000 mls @ 75 mls/hr IV .[id number] [facility] Last Admin: 01/12/17 01:00 Dose: 75 mls/hr Oxytocin (Pitocin 20 Units In Lr) 1,000 mls @ 125 mls/hr IV .Q8H [facility] PRN Reason: Protocol Magnesium Sulfate (Magnesium Sulfate) 500 mls @ 0 mls/hr IV .Q0M PRN PRN Reason: UD Last Admin: 01/12/17 15:18 Dose: 50 mls/hr Cefoxitin Sodium (Mefoxin Iv 2 Gm Duplex) 50 mls @ 100 mls/hr IVPB ONCE ONE Stop: 01/12/17 20:59 - Labs Labs: 01/12/17 07:29 01/12/17 07:29 PT 9.3 SECONDS (9.7-12.2) L 01/12/17 01:43 INR 0.8 01/12/17 01:43 APTT 30 SECONDS (21-34) 01/12/17 01:43 Attending/Attestation - Attestation I have personally seen and examined this patient.: Yes I have fully participated in the care of the patient.: Yes I have reviewed all pertinent clinical information, including history, physical exam and plan: Yes Notes (Text): 01/12/17 16:37 Medical Consult: Patient was seen and examined by me. Agree with the above note by the resident. Patient earlier in the morning had C section. The patient was not in any acute distress when seen. BP had decreased and also she was receiving Mg as well. At this time continue with monitor lab work including LFT, PT, INR and also CBC as well. thank you Gómez Cano 01/12/17 18:17
[2017-01-12] MEDS: Enoxaparin 30 mg Syringe SC SCH (17:52)
[2017-01-12] MEDS ORDERED: cefOXitin 2 GM in Sodium Chloride 0.9% 100 ML IVPB ONE (20:45)
[2017-01-13 08:24] LABS: BASO % 0.2 % (0.0-2.0); HEMATOCRIT 31.6 % (34.0-47.0); LYMPH # 1.9 K/uL (1.0-4.3); LYMPH % 14.6 % (20.0-40.0); MEAN CELL VOLUME 88.7 fL (81.0-99.0); MEAN CORPUSCULAR HEMOGLOBIN 28.6 pg (27.0-31.0); MEAN CORPUSCULAR HGB CONC 32.2 g/dL (33.0-37.0); MEAN PLATELET VOLUME 9.5 fL (7.2-11.7); MONO # 0.5 K/uL (0.0-0.8); MONO % 3.9 % (0.0-10.0); NRBC % 0.1 % (0.0-2.0); RED CELL DISTRIBUTION WIDTH 14.8 % (11.5-14.5); WHITE BLOOD COUNT 13.3 K/uL (4.8-10.8)
[2017-01-13 08:31] LABS: INR 0.9
--- NOTE | 2017-01-13 08:35 | OBPPN ---
Datetime: 01/13/2017 08:09 PP Pain Prov: Within normal limits PP Nausea Prov: Denies PP Flatus Prov: No PP BM Prov: No PP Heart Prov: Normal PP Lungs Prov: Normal PP Abdomen/Uterus Prov: Normal PP Lochia Prov: Normal PP Vulva/Perineum Prov: Normal PP CVA Tenderness Prov: Normal PP Extremities Prov: Normal PP C/S Incision Prov: Normal PP Impression Prov: Normal progression PP Plan Prov: Continue present management PP Progress Note Prov: S-patient denies nausea, vomiting, headache, chest pain, epigastric pain O-BP 110-130S/60-70S Afebrile Incision clean, dry and intact Extermities no calf tendernss A/P Patient s/p primary csection for HELLP syndrome POD 1 -S/p magnesium sulafte -repeat PIH labs pending -patients BP stable.Continue to monitor closely -encourage ambulation and po fluid intake -advance diet -monitor closely Vital Signs Provider PP: Reviewed; Within Normal Limits
[2017-01-13 08:46] LABS: CHLORIDE 97 mmol/L (98-107); SODIUM 132 mmol/L (132-148)
[2017-01-13 08:47] LABS: POTASSIUM 4.2 mmol/L (3.6-5.2)
[2017-01-13 08:48] LABS: BILIRUBIN,TOTAL 0.1 mg/dL (0.2-1.3); GFR AFRICAN-AMERICAN > 60
[2017-01-13 08:49] LABS: ALB/GLOB RATIO 0.9 (1.0-2.1); ALKALINE PHOSPHATASE 155 U/L (38-126); ALT/SGPT 50 U/L (9-52); AST/SGOT 48 U/L (14-36); BLOOD UREA NITROGEN 13 mg/dL (7-17); CARBON DIOXIDE 24 mmol/L (22-30); GLUCOSE,RANDOM 81 mg/dL (65-105); TOTAL PROTEIN 5.9 g/dL (6.3-8.3)
[2017-01-13 08:50] LABS: CALCIUM 6.2 mg/dl (8.6-10.4); MAGNESIUM 4.6 mg/dL (1.6-2.3)
--- NOTE | 2017-01-13 10:37 | RAD ---
PROCEDURE: CHEST RADIOGRAPH, 1 VIEW HISTORY: sob COMPARISON: None available. FINDINGS: LUNGS: Improved inspiration and slight improvement mild bibasilar atelectasis. Previously described ground-glass opacities seen on prior CT scan may also have improved slightly. PLEURA: No pneumothorax or pleural fluid seen. CARDIOVASCULAR: Normal. OSSEOUS STRUCTURES: No significant abnormalities. VISUALIZED UPPER ABDOMEN: Normal. OTHER FINDINGS: None. IMPRESSION: Improved inspiration and slight improvement mild bibasilar atelectasis. Previously described ground-glass opacities seen on prior CT scan may also have improved slightly
[2017-01-13] MEDS: Enoxaparin 30 mg Syringe SC SCH (10:57)
[2017-01-13] MEDS ORDERED: Oxycodone/Acetaminophen 5/325 mg Tab PO PRN ×2 (12:13)
--- NOTE | 2017-01-13 12:44 | CP.PCM.PN ---
<Kecia Chand - Last Filed: 01/13/17 13:39> Subjective - Date & Time of Evaluation Date of Evaluation: 01/13/17 Time of Evaluation: 07:30 - Subjective Subjective: PGY [address] Cano: Patient seen and examined at bedside this morning. Patient was s/p C section POD #1. She was awake and alert. No events overnight per nursing. She did not require any meds to control her BP. She complained of some nausea yesterday but otherwise stated she was feeling better. She admitted to mild abdominal tenderness over her C section incision. She denied SOB or chest pain. She denied headache or changes in vision. She had no other complaints. She was sitting in the chair eating breakfast. Objective - Vital Signs/Intake and Output Vital Signs (last 24 hours): Temp Pulse Resp BP Pulse Ox 98 F 112 H 22 155/86 H 99 01/12/17 00:12 01/12/17 00:12 01/12/17 00:12 01/12/17 00:12 01/12/17 01:00 - Medications Medications: Current Medications Docusate Sodium (Colace) 100 mg PO BID [facility] Enoxaparin Sodium (Lovenox) 30 mg SC DAILY [facility] Last Admin: 01/13/17 10:57 Dose: 30 mg Ferrous Sulfate (Feosol) 325 mg PO DAILY [facility] Hydralazine HCl (Apresoline) 10 mg IVP STAT [facility] Last Admin: 01/11/17 23:26 Dose: 10 mg Hydralazine HCl (Apresoline) 25 mg PO QID PRN PRN Reason: elevated blood pressure Last Admin: 01/13/17 10:56 Dose: 25 mg Lactated Ringer's (Lactated Ringer's) 1,000 mls @ 75 mls/hr IV .[id number] [facility] Last Admin: 01/12/17 01:00 Dose: 75 mls/hr Oxytocin (Pitocin 20 Units In Lr) 1,000 mls @ 125 mls/hr IV .Q8H [facility] PRN Reason: Protocol Magnesium Sulfate (Magnesium Sulfate) 500 mls @ 0 mls/hr IV .Q0M PRN PRN Reason: UD Last Admin: 01/12/17 15:18 Dose: 50 mls/hr Ibuprofen (Motrin Tab) 600 mg PO Q6H PRN PRN Reason: Pain, Mild (1-3) Oxycodone/Acetaminophen (Percocet 5/325 Mg Tab) 1 tab PO Q4H PRN PRN Reason: Pain, moderate (4-7) Stop: 01/16/17 12:14 Oxycodone/Acetaminophen (Percocet 5/325 Mg Tab) 2 tab PO Q4H PRN PRN Reason: Pain, severe (8-10) Stop: 01/16/17 12:14 Multivit/Folic Acid/Iron () 1 tab PO DAILY [facility] Simethicone (Mylicon Chew Tab) 80 mg PO QID [facility] - Labs Labs: 01/13/17 08:16 01/13/17 08:16 PT 9.6 SECONDS (9.7-12.2) L 01/13/17 08:16 INR 0.9 01/13/17 08:16 APTT 27 SECONDS (21-34) 01/13/17 08:16 - Constitutional Appears: Non-toxic, No Acute Distress - Head Exam Head Exam: ATRAUMATIC, NORMAL INSPECTION - Eye Exam Eye Exam: EOMI, PERRL Pupil Exam: NORMAL ACCOMODATION - ENT Exam ENT Exam: Mucous Membranes Moist - Respiratory Exam Respiratory Exam: Clear to Ausculation Bilateral, NORMAL BREATHING PATTERN. absent: Accessory Muscle Use, Chest Wall Tenderness, Rales, Rhonchi, Wheezes - Cardiovascular Exam Cardiovascular Exam: REGULAR RHYTHM, +S1, +S2 - GI/Abdominal Exam GI & Abdominal Exam: Soft, Tenderness, Normal Bowel Sounds. absent: Distended, Firm, Guarding Additional comments: appropriate tenderness over incision - Extremities Exam Extremities Exam: Pedal Edema Additional comments: 1+ edema b/l lower ext Assessment and Plan - Assessment and Plan (Free Text) Assessment: 1. Possible HELLP or Partial HELLP Syndrome s/p C section POD #1 Platelets 124, improving AST 48 down from 91 admission ALT 50 down from 57 on admission LDH elevated PT, PT - wnl fibrinogen 437 According to [place] classification: mild (class 3) - platelet count of 100, 000-150,000/uL, AST and ALT greater than 40IU/L and LDH > 600 IU/L According to [place] classification: severe preeclampsia with elevated liver enzymes (AST or ALT levels of 70 IU/L or more) f/u AM labs 2. Preeclampsia with severe features Initial blood pressure of 178/102, when examined BP controlled to 135/93 Hydralazine 25mg PO prn SBP >160 - did not need any doses overnight. BP stable s/p C section POD #1 Mg drip - discontinued 3. Possible Pulmonary Embolism CT Angio - negative for PE EKG: sinus tachycardia with rate 112 Patient not SOB anymore - resolved d-dimer 1194 Well's score of 4.5 - moderate risk group with 16.2% chance of PE Repeat Chest X ray - improvement 4. Hep B Hepatitis Antigen + Patient will need outpatient follow up to monitor LFTS, with possible GI referral by primary Suggest that baby is checked for hepatitis - was transferred to [facility] for further care Thank you for the consult. Will continue to follow patient. <Gómez Cano H - Last Filed: 01/13/17 14:28> Objective - Vital Signs/Intake and Output Vital Signs (last 24 hours): Temp Pulse Resp BP Pulse Ox 98 F 112 H 22 155/86 H 99 01/12/17 00:12 01/12/17 00:12 01/12/17 00:12 01/12/17 00:12 01/12/17 01:00 - Medications Medications: Current Medications Docusate Sodium (Colace) 100 mg PO BID [facility] Enoxaparin Sodium (Lovenox) 30 mg SC DAILY [facility] Last Admin: 01/13/17 10:57 Dose: 30 mg Ferrous Sulfate (Feosol) 325 mg PO DAILY [facility] Hydralazine HCl (Apresoline) 10 mg IVP STAT [facility] Last Admin: 01/11/17 23:26 Dose: 10 mg Hydralazine HCl (Apresoline) 25 mg PO QID PRN PRN Reason: elevated blood pressure Last Admin: 01/13/17 13:35 Dose: 25 mg Lactated Ringer's (Lactated Ringer's) 1,000 mls @ 75 mls/hr IV .[id number] [facility] Last Admin: 01/12/17 01:00 Dose: 75 mls/hr Oxytocin (Pitocin 20 Units In Lr) 1,000 mls @ 125 mls/hr IV .Q8H [facility] PRN Reason: Protocol Magnesium Sulfate (Magnesium Sulfate) 500 mls @ 0 mls/hr IV .Q0M PRN PRN Reason: UD Last Admin: 01/12/17 15:18 Dose: 50 mls/hr Ibuprofen (Motrin Tab) 600 mg PO Q6H PRN PRN Reason: Pain, Mild (1-3) Oxycodone/Acetaminophen (Percocet 5/325 Mg Tab) 1 tab PO Q4H PRN PRN Reason: Pain, moderate (4-7) Stop: 01/16/17 12:14 Oxycodone/Acetaminophen (Percocet 5/325 Mg Tab) 2 tab PO Q4H PRN PRN Reason: Pain, severe (8-10) Stop: 01/16/17 12:14 Last Admin: 01/13/17 13:36 Dose: 2 tab Multivit/Folic Acid/Iron () 1 tab PO DAILY [facility] Simethicone (Mylicon Chew Tab) 80 mg PO QID [facility] Last Admin: 01/13/17 13:35 Dose: 80 mg - Labs Labs: 01/13/17 08:16 01/13/17 08:16 PT 9.6 SECONDS (9.7-12.2) L 01/13/17 08:16 INR 0.9 01/13/17 08:16 APTT 27 SECONDS (21-34) 01/13/17 08:16 Attending/Attestation - Attestation I have personally seen and examined this patient.: Yes I have fully participated in the care of the patient.: Yes I have reviewed all pertinent clinical information, including history, physical exam and plan: Yes Notes (Text): 01/13/17 14:24 Medical Consult: Patient was seen and examined by me. Agree with the above note by the resident. The patient was explaining that the pain had decreased as well. Her BP was also lower as well. We reviewed the CXRAY and compared to previous day and it appears to be improving as well. Now off of the IV Magnesium. There is a hepatitis B antigen that is postive and she will need to follow up out patient for this. thank you Gómez Cano
[2017-01-13] MEDS: Simethicone 80 mg Chewtab PO SCH ×3 (13:35→21:28)
[2017-01-13 16:12] VITALS: RESP 20
--- NOTE | 2017-01-13 20:26 | CARD ---
APPROVED REPORT EKG Measurement Heart [id number] <Conclusion> Sinus tachycardia Possible Left atrial enlargement Nonspecific ST and T wave abnormality Abnormal ECG
[2017-01-14 07:36] LABS: BASO # 0.1 K/uL (0.0-0.2); BASO % 0.5 % (0.0-2.0); EOS # 0.1 K/uL (0.0-0.7); EOS % 0.5 % (0.0-4.0); HEMATOCRIT 32.2 % (34.0-47.0); LYMPH # 3.3 K/uL (1.0-4.3); LYMPH % 26.1 % (20.0-40.0); MEAN CELL VOLUME 88.7 fL (81.0-99.0); MEAN CORPUSCULAR HEMOGLOBIN 28.4 pg (27.0-31.0); MEAN PLATELET VOLUME 9.2 fL (7.2-11.7); MONO # 0.6 K/uL (0.0-0.8); MONO % 5.1 % (0.0-10.0); WHITE BLOOD COUNT 12.5 K/uL (4.8-10.8)
[2017-01-14 08:01] LABS: INR 0.8
[2017-01-14 08:03] LABS: CHLORIDE 98 mmol/L (98-107)
[2017-01-14 08:04] LABS: POTASSIUM 4.1 mmol/L (3.6-5.2); SODIUM 134 mmol/L (132-148)
[2017-01-14 08:06] LABS: ALB/GLOB RATIO 0.9 (1.0-2.1); AST/SGOT 30 U/L (14-36); BILIRUBIN,TOTAL 0.1 mg/dL (0.2-1.3); BLOOD UREA NITROGEN 14 mg/dL (7-17); CARBON DIOXIDE 25 mmol/L (22-30); GFR AFRICAN-AMERICAN > 60; TOTAL PROTEIN 5.9 g/dL (6.3-8.3)
[2017-01-14 08:07] LABS: ALKALINE PHOSPHATASE 140 U/L (38-126); ALT/SGPT 37 U/L (9-52); CALCIUM 7.2 mg/dl (8.6-10.4); GLUCOSE,RANDOM 72 mg/dL (65-105)
[2017-01-14] MEDS: Simethicone 80 mg Chewtab PO SCH ×3 (09:03→17:37)
[2017-01-14] MEDS: Enoxaparin 30 mg Syringe SC SCH (09:06)
--- NOTE | 2017-01-14 09:38 | CP.PCM.PN ---
<MannieKecia - Last Filed: 01/14/17 09:32> Subjective - Date & Time of Evaluation Date of Evaluation: 01/14/17 Time of Evaluation: 07:00 - Subjective Subjective: PGY [address] Cano: Patient seen and examined at bedside this morning. Patient was s/p C section POD #2. She was awake and alert. No events overnight per nursing. She admitted to mild abdominal tenderness over her C section incision. She denied SOB or chest pain. She denied headache or changes in vision. She had no other complaints. She was sitting in the chair eating breakfast. NO new complaints. Objective - Vital Signs/Intake and Output Vital Signs (last 24 hours): Temp Pulse Resp BP Pulse Ox 98.6 F 100 H 20 127/68 95 01/14/17 00:00 01/14/17 00:00 01/14/17 00:00 01/14/17 00:00 01/14/17 00:00 - Medications Medications: Current Medications Docusate Sodium (Colace) 100 mg PO BID [facility] Last Admin: 01/14/17 09:03 Dose: 100 mg Enoxaparin Sodium (Lovenox) 30 mg SC DAILY [facility] Last Admin: 01/14/17 09:06 Dose: 30 mg Ferrous Sulfate (Feosol) 325 mg PO DAILY [facility] Last Admin: 01/14/17 09:05 Dose: 325 mg Hydralazine HCl (Apresoline) 10 mg IVP STAT [facility] Last Admin: 01/11/17 23:26 Dose: 10 mg Hydralazine HCl (Apresoline) 25 mg PO QID PRN PRN Reason: elevated blood pressure Last Admin: 01/13/17 13:35 Dose: 25 mg Lactated Ringer's (Lactated Ringer's) 1,000 mls @ 75 mls/hr IV .[id number] [facility] Last Admin: 01/12/17 01:00 Dose: 75 mls/hr Oxytocin (Pitocin 20 Units In Lr) 1,000 mls @ 125 mls/hr IV .Q8H JOSE PRN Reason: Protocol Magnesium Sulfate (Magnesium Sulfate) 500 mls @ 0 mls/hr IV .Q0M PRN PRN Reason: UD Last Admin: 01/12/17 15:18 Dose: 50 mls/hr Ibuprofen (Motrin Tab) 600 mg PO Q6H PRN PRN Reason: Pain, Mild (1-3) Last Admin: 01/14/17 09:03 Dose: 600 mg Oxycodone/Acetaminophen (Percocet 5/325 Mg Tab) 1 tab PO Q4H PRN PRN Reason: Pain, moderate (4-7) Stop: 01/16/17 12:14 Oxycodone/Acetaminophen (Percocet 5/325 Mg Tab) 2 tab PO Q4H PRN PRN Reason: Pain, severe (8-10) Stop: 01/16/17 12:14 Last Admin: 01/13/17 13:36 Dose: 2 tab Multivit/Folic Acid/Iron () 1 tab PO DAILY JOSE Simethicone (Mylicon Chew Tab) 80 mg PO QID JOSE Last Admin: 01/14/17 09:03 Dose: 80 mg - Labs Labs: 01/14/17 07:26 01/14/17 07:26 PT 9.3 SECONDS (9.7-12.2) L 01/14/17 07:26 INR 0.8 01/14/17 07:26 APTT 28 SECONDS (21-34) 01/14/17 07:26 - Constitutional Appears: Non-toxic, No Acute Distress - Head Exam Head Exam: NORMAL INSPECTION - Eye Exam Eye Exam: EOMI, Normal appearance, PERRL Pupil Exam: NORMAL ACCOMODATION - ENT Exam ENT Exam: Mucous Membranes Moist - Respiratory Exam Respiratory Exam: Clear to Ausculation Bilateral, NORMAL BREATHING PATTERN. absent: Respiratory Distress - Cardiovascular Exam Cardiovascular Exam: REGULAR RHYTHM, +S1, +S2 - GI/Abdominal Exam GI & Abdominal Exam: Soft, Tenderness, Normal Bowel Sounds (appropriate over area of C section incision). absent: Distended, Firm, Guarding - Extremities Exam Extremities Exam: Pedal Edema Additional comments: + edema in b/l hand, more on the L - Back Exam Back Exam: NORMAL INSPECTION. absent: CVA tenderness (L), CVA tenderness (R), paraspinal tenderness - Neurological Exam Neurological Exam: Alert, Awake, CN II-XII Intact, Oriented x3 Neuro motor strength exam: Left Upper Extremity: 5, Right Upper Extremity: 5, Left Lower Extremity: 5, Right Lower Extremity: 5 - Psychiatric Exam Psychiatric exam: Normal Affect, Normal Mood - Skin Skin Exam: Dry, Intact, Normal Color, Warm Assessment and Plan - Assessment and Plan (Free Text) Assessment: Edema present on admission - b/l LE and b/l hands Will give one dose Lasix 20mg by mouth to help with the swelling Thrombocytopenia Platelets 158, Resolved Hypertension Hydralazine 25mg PO prn SBP >160 BP has been stable and controlled HELLP or Partial HELLP Syndrome Resolved s/p C section POD #2 Platelets 158, thrombocytopenia resolved AST/ALT downtrending LDH elevated on admission PT, PT - wnl fibrinogen 437 According to [place] classification: mild (class 3) - platelet count of 100, 000-150,000/uL, AST and ALT greater than 40IU/L and LDH > 600 IU/L According to [place] classification: severe preeclampsia with elevated liver enzymes (AST or ALT levels of 70 IU/L or more) Preeclampsia with severe features Resolved Initial blood pressure of 178/102, when examined BP controlled to 135/93 s/p C section POD #2 Mg drip - discontinued Pulmonary Embolism ruled out Resolved - Patient not complaining of SOB CT Angio - negative for PE EKG: sinus tachycardia with rate 112 on admission d-dimer 1194 Well's score of 4.5 - moderate risk group with 16.2% chance of PE Repeat Chest X ray - improvement Hep B Hepatitis Antigen + Patient will need outpatient follow up to monitor LFTS, with possible GI referral by primary Suggest that baby is checked for hepatitis - was transferred to [facility] for further care Thank you for the consult. Will continue to follow patient. OK to DC from medical standpoint. <Gómez Cano H - Last Filed: 01/14/17 16:05> Objective - Vital Signs/Intake and Output Vital Signs (last 24 hours): Temp Pulse Resp BP Pulse Ox 98.6 F 100 H 20 140/70 95 01/14/17 00:00 01/14/17 00:00 01/14/17 00:00 01/14/17 13:37 01/14/17 00:00 - Medications Medications: Current Medications Docusate Sodium (Colace) 100 mg PO BID [facility] Last Admin: 01/14/17 09:03 Dose: 100 mg Enoxaparin Sodium (Lovenox) 30 mg SC DAILY [facility] Last Admin: 01/14/17 09:06 Dose: 30 mg Ferrous Sulfate (Feosol) 325 mg PO DAILY [facility] Last Admin: 01/14/17 09:05 Dose: 325 mg Hydralazine HCl (Apresoline) 10 mg IVP STAT [facility] Last Admin: 01/11/17 23:26 Dose: 10 mg Hydralazine HCl (Apresoline) 25 mg PO QID PRN PRN Reason: elevated blood pressure Last Admin: 01/13/17 13:35 Dose: 25 mg Magnesium Sulfate (Magnesium Sulfate) 500 mls @ 0 mls/hr IV .Q0M PRN PRN Reason: UD Last Admin: 01/12/17 15:18 Dose: 50 mls/hr Ibuprofen (Motrin Tab) 600 mg PO Q6H PRN PRN Reason: Pain, Mild (1-3) Last Admin: 01/14/17 09:03 Dose: 600 mg Oxycodone/Acetaminophen (Percocet 5/325 Mg Tab) 1 tab PO Q4H PRN PRN Reason: Pain, moderate (4-7) Stop: 01/16/17 12:14 Oxycodone/Acetaminophen (Percocet 5/325 Mg Tab) 2 tab PO Q4H PRN PRN Reason: Pain, severe (8-10) Stop: 01/16/17 12:14 Last Admin: 01/13/17 13:36 Dose: 2 tab Multivit/Folic Acid/Iron () 1 tab PO DAILY [facility] Simethicone (Mylicon Chew Tab) 80 mg PO QID [facility] Last Admin: 01/14/17 13:40 Dose: 80 mg - Labs Labs: 01/14/17 07:26 01/14/17 07:26 PT 9.3 SECONDS (9.7-12.2) L 01/14/17 07:26 INR 0.8 01/14/17 07:26 APTT 28 SECONDS (21-34) 01/14/17 07:26 Attending/Attestation - Attestation I have personally seen and examined this patient.: Yes I have fully participated in the care of the patient.: Yes I have reviewed all pertinent clinical information, including history, physical exam and plan: Yes Notes (Text): Medical Attending: Patient was seen and examined by me. She was standing in the room and ambulating on her own without assistance. She appeared to be ok, she did not have any acute concerns when we saw her. Blood work appears to be stable - not large drop in Hgb. The platelet count is also stable as well. thank you Gómez Cano
[2017-01-14] MEDS ORDERED: Prenatal Multivit/Folic Acid/Iron Tab PO SCH (10:00)
[2017-01-14 17:52] VITALS: BP 132/82; PULSE 81; TEMP 98.8; O2SAT 97
--- NOTE | 2017-01-15 01:10 | OBPPN ---
Datetime: 01/14/2017 16:37 PP Pain Prov: Within normal limits PP Nausea Prov: Denies PP Flatus Prov: Yes PP BM Prov: No PP Breasts Prov: Normal PP Heart Prov: Normal PP Lungs Prov: Normal PP Abdomen/Uterus Prov: Normal PP Lochia Prov: Normal PP Vulva/Perineum Prov: Not Done PP CVA Tenderness Prov: Normal PP Extremities Prov: Abnormal PP C/S Incision Prov: Normal PP Progress Prov: Not Applicable PP Comments Phys Exam Prov: Skin: warm, dry, intact HEENT: full ROM Lungs: CTA bilaterally Cardiac: RRR, normal S1, S2. No eipgastric or RUQ pain. Fundus firm, appropriately tender, 2 FB ab ove umbilicus. Incision with hermes - clean, dry and intact. Mild lochia rubra. Extremities: no calf tenderness; (+) bilateral 2+ pitting edema of lower extremities All other systems reviewed - as per HPI PP Plan Prov: Discharge PP Impression Other Prov: Severe pre-eclampsia/HELLP syndrome resolved PP Progress Note Prov: PGY-1 Ralph Delgado D.O. 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 Pumping her breasts. Rep orts uterine discomfort, pain scale 5/10 when she moves; relieved with motrin. Denies headaches, blur red vision, epigastric or RUQ pain. Denies nausea, vomiting; (+) flatus; (-) BM. Anxious to be discha rged - at [facility] c[facility] P.E.: as above. Mildly obese in NAD. Awake, alert, oriented to time, person and place. Pleasant an d cooperative. - labs reviewed: plt count increased to 158K. AST/ALT trending down. Hgb stable at 10.2. Repeat CX R - improved. Assessment: POD#2, 41 yo [id number], S/P urgent primary C/S for HELLP syndrome/severe pre-eclampsia - S /P magnesium sulphate x 24 hours; possible pulmonary embolus. Later ruled out prior to abdominal deli very. Medicine co-management noted and appreciated; patient has been cleared by same for discharge. I ssue re: hepatits B surface antigen positivity discussed: to be followed up with GI as an outpatint. The importance of this was stressed upon the patient, who expressed an understandng and agrees (albei t reluctantly). Interested in IUD for contraception. Patient is clincally stable. Plan: 1) discharge home 2) See full discharge instructions. Vital Signs Provider PP: Reviewed
--- NOTE | 2017-01-15 01:24 | OBDCSUM ---
Datetime: 01/14/2017 18:24 Discharged to, Provider: Home Follow up at, Provider: [facility] [place] Disch Instr Activity: Normal activity; May be up to bathroom; May be up for meals; May Shower Disch Instr Diet: Regular Discharge Diagnosis, Provider: Delivery Discharge Time: 01/14/2017 18:26 Follow up in weeks, Provider: 01/19/17 Disch Referrals: None Contraception discussed, Prov: Yes Disch Activity Restrictions: No lifting; No sexual activity; Nothing in vagina - [place], tampon s, douche Discharge Comment, Provider: Follow up with GI Discharge Diagnosis Prov Other: Advanced maternal age delivery at 34 weeks Status post primary section Severe pre-eclampsia HELLP syndrome Anemia Hepatitis B surface antigen positive Contraception counseling Contraception after Delivery: IUD
== END 2017-01-14 20:22 | disposition home or self-care (01) | DRG 766 ==
LOC: C.ER 21:50 → C.4D 23:35 → C.4M 01-13 09:00
PROVIDERS: ADMIT Obstetrics & Gynecology; ATTEND Obstetrics & Gynecology
PROC: 10D00Z1 Extraction of Products of Conception, Low, Open Approach (ICD-10-PCS; principal; 2017-01-12)
DX: O14.24 HELLP syndrome, complicating childbirth (principal); O60.14X0 Preterm labor third trimester with preterm delivery third trimester, not applicable or unspecified; O99.42 Diseases of the circulatory system complicating childbirth; R00.0 Tachycardia, unspecified; O99.02 Anemia complicating childbirth; O09.523 Supervision of elderly multigravida, third trimester; Z3A.34 34 weeks gestation of pregnancy; Z37.0 Single live birth